=== PATIENT | male | born 1995 | race Caucasian/White ===

== ENCOUNTER 2019-11-08 14:20 | Emergency (ER) | payer BC, OTHER ==
[2019-11-08 14:38] VITALS: BP 120/62; PULSE 72; TEMP 98.2; BMI 21.2
[2019-11-08] MEDS ORDERED: LIDOCAINE 5% TOPICAL PATCH TP ONE (14:57)
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
[2019-11-08] MEDS ORDERED: LIDOCAINE 5% TOPICAL PATCH ONE (15:05)
[2019-11-08] MEDS ORDERED: LIDOCAINE PATCH REMOVAL MC SCH (22:00)
== END 2019-11-08 15:13 | disposition home or self-care (01) ==
LOC: FER 14:20
DX: S20.212A Contusion of left front wall of thorax, initial encounter (principal); R07.82 Intercostal pain
CPT/HCPCS: 99283-25